=== PATIENT | female | born 1945 | race Caucasian/White ===

== ENCOUNTER → 2016-08-24 | Outpatient (CLI) | payer BC, OTHER ==
[~2016-08-24] MED LIST: AMPH1TAB58 PO; ASPEC325 PO; CALC500C3 PO; CHOL2000 PO; CIPR250T3 PO; FRRG PO; LISI-461 PO; LORA-741 PO; MCRK20 PO; MULT1CHW28 PO; NAPR-998 PO; NAPR1CAP12 PO; ROPI0.5T15 PO; RSTOPS OP; SYN100 PO; TRAM-10 PO; magnesium PO
--- NOTE | 2016-08-24 16:37 | MAMMOGRAPHY REPORT ---
BILATERAL DIGITAL SCREENING MAMMOGRAM WITH CAD: 08/24/2016 CLINICAL HISTORY: Routine screening examination. History of reduction mammoplasty and right breast excisional biopsy. TECHNIQUE: Bilateral CC and MLO views were obtained. Current study was also evaluated with a Comput er Aided Detection (CAD) system. COMPARISON: Comparison is made to exams dated: 08/19/2015 mammogram, 07/24/2014 mammogram, 07/23/2013 mammogram, 06/23/2010 mammogram, 06/19/2009 mammogram - [facility], and 06/27/2008. BREAST COMPOSITION: The tissue of both breasts is heterogeneously dense, which may obscure small ma sses. FINDINGS: There are postsurgical changes in the breasts from previous reduction mammoplasty and rig ht breast excisional biopsy. There are stable asymmetries bilaterally. Diffuse bilateral benign re nal calcifications. No new suspicious mass, architectural distortion or cluster of microcalcificatio ns is seen. IMPRESSION: ACR BI-RADS CATEGORY 2: BENIGN There is no mammographic evidence of malignancy. A 1 year screening mammogram is recommended. The p atient will receive written notification of the results. Approximately 10% of breast cancers are not detected with mammography. A negative mammographic repor t should not delay biopsy if a clinically suggestive mass is present. Eryn Porras M.D. ay/:08/24/2016 15:05:58 Spent Grain Dryer: Ceci RODRÍGUEZ(R)(M), [facility] letter sent: Normal 1/2 BI-RADS Code: ACR BI-RADS Category 2: Benign
== END | disposition home or self-care (01) ==
LOC: C.MAMM 09:59
PROVIDERS: ATTEND Family Medicine
DX: Z12.31 Encounter for screening mammogram for malignant neoplasm of breast (principal)

== ENCOUNTER → 2017-03-15 | Outpatient (CLI) | payer BC, OTHER ==
[~2017-03-15] MED LIST changes: +OPTIRAY 320 IV PRN
--- NOTE | 2017-03-15 12:12 | DIAGNOSTIC IMAGING REPORT ---
ABD WITH IV AND ORAL CONT (CT) CT DOSE: 615.32 mGycm HISTORY: Abdominal pain pain TECHNIQUE: Multiaxial CT images of the abdomen was performed following the use of intravenous and oral contrast. A dose lowering technique was utilized adhering to the principles of ALARA. COMPARISON STUDY: 12/14/2013 FINDINGS: Lung bases are clear. Mild fatty infiltration of liver. Prior cholecystectomy. Kidneys enhance uniformly. Spleen and pancreas are unremarkable. There is a very small hiatal hernia. IMPRESSION: 1. Fatty infiltration of liver. 2. Prior cholecystectomy. 3. Otherwise negative study The above report was generated using voice recognition software. It may contain grammatical, syntax or spelling errors. Electronically signed by: Randy Thompson M.D. 03/15/2017 12:11 PM Dictated Date/Time: 03/15/2017 12:07 PM
== END | disposition home or self-care (01) ==
LOC: C.CTS 11:23
PROVIDERS: ATTEND Family Medicine
DX: R10.9 Unspecified abdominal pain (principal); K76.0 Fatty (change of) liver, not elsewhere classified; Z90.49 Acquired absence of other specified parts of digestive tract

== ENCOUNTER → 2017-03-17 | Outpatient (CLI) | payer BC, OTHER ==
[~2017-03-17] MED LIST changes: -OPTIRAY 320 IV PRN
== END | disposition home or self-care (01) ==
LOC: C.RDSM 14:27
PROVIDERS: ATTEND Family Medicine
DX: M53.3 Sacrococcygeal disorders, not elsewhere classified (principal)

== ENCOUNTER → 2017-08-25 | Outpatient (CLI) | payer BC, OTHER ==
--- NOTE | 2017-08-25 14:40 | MAMMOGRAPHY REPORT ---
BILATERAL DIGITAL SCREENING MAMMOGRAM TOMOSYNTHESIS WITH CAD: 08/25/2017 TECHNIQUE: Breast tomosynthesis in addition to standard 2D mammography was performed. Current study was also evaluated with a Computer Aided Detection (CAD) system. COMPARISON: Comparison is made to exams dated: 08/24/2016 mammogram, 08/19/2015 mammogram, 07/23/2013 ma mmogram, 07/24/2014 mammogram, 01/19/2013 mammogram, and 07/19/2012 mammogram - [facility]. BREAST COMPOSITION: The tissue of both breasts is heterogeneously dense, which may obscure small mas ses. FINDINGS: No suspicious masses, calcifications, or areas of architectural distortion are noted in ei ther breast. There has been no significant interval change compared to prior exams. There are stable post surgical changes from bilateral reduction mammoplasty. Bilateral asymmetries and benign-appear ing calcifications are stable compared to prior exams. Note that the left MLO view is suboptimal due to difficulties with patient positioning due to left shoulder pain; the left pectoralis muscle is no t visualized on the left MLO view. IMPRESSION: ACR BI-RADS CATEGORY 2: BENIGN There is no mammographic evidence of malignancy. A 1 year screening mammogram is recommended. The pa tient will receive written notification of the results. Approximately 10% of breast cancers are not detected with mammography. A negative mammographic report should not delay biopsy if a clinically suggestive mass is present. Roz Fan M.D. /:08/25/2017 12:42:04 Shactor: Shelley BOUCHER)(Jason), [facility] letter sent: Normal 1/2 BI-RADS Code: ACR BI-RADS Category 2: Benign
== END | disposition home or self-care (01) ==
LOC: C.MAMM 10:19
PROVIDERS: ATTEND Family Medicine
DX: Z12.31 Encounter for screening mammogram for malignant neoplasm of breast (principal)

== ENCOUNTER → 2017-09-05 | Outpatient (CLI) | payer BC, OTHER ==
--- NOTE | 2017-09-05 11:25 | DIAGNOSTIC IMAGING REPORT ---
LEFT LEG ULTRASOUND CLINICAL HISTORY: SKIN LESION LEFT LEG COMPARISON STUDY: None. FINDINGS: Real-time sonographic imaging of the right medial lower leg was performed. At the patient's area of interest there is skin thickening and subcutaneous edema. No definite masses or loculated fluid collections identified. IMPRESSION: Skin thickening and subcutaneous edema within the right medial lower leg. No definite masses identified. Electronically signed by: Wilfred Vera M.D. 09/05/2017 11:23 AM Dictated Date/Time: 09/05/2017 11:21 AM
== END | disposition home or self-care (01) ==
LOC: C.ULTR 10:42
PROVIDERS: ATTEND Family Medicine
DX: L98.9 Disorder of the skin and subcutaneous tissue, unspecified (principal); R60.0 Localized edema

== ENCOUNTER → 2017-12-21 | Day surgery (SDC) | payer BC, OTHER ==
[2017-12-05 08:47] VITALS: Ht 170.2 cm; Wt 95.0 kg
[~2017-12-21] VITALS: Ht 170.2 cm; Wt 95.0 kg
[~2017-12-21] MED LIST changes: -AMPH1TAB58 PO; -ASPEC325 PO; -CALC500C3 PO; +CHOL1000 PO; -CHOL2000 PO; -CIPR250T3 PO; +DICL1GEL12 EXT; +DIPH-437 PO; +EFF/375 PO; -FRRG PO; +HYDR-4380 PO; +IOPAMIDOL INJ 61% 15 ML VIAL ONE; +LEVO88TA PO; +LIDOCAINE HCL 1% MPF 5 ML VIAL ONE; -LISI-461 PO; +LISI10TA PO; -MCRK20 PO; +MELA1TAB5 PO; -MULT1CHW28 PO; -NAPR-998 PO; -NAPR1CAP12 PO; +RANI150T85 PO; -RSTOPS OP; +SODIUM CHLORIDE 0.9% INJ 10 ML VIAL ONE; -SYN100 PO; -magnesium PO
--- NOTE | 2017-12-21 14:26 | History & Physical Bridge - SC ---
H&P Re-Evaluation Bridge Note: I have examined the patient, reviewed the History & Physical and in the interval since the performance of the History & Physical I have noted the following changes of clinical significance: No changes noted
--- NOTE | 2017-12-21 14:51 | [facility] Post Operative Brief Note ---
Immediate Operative Summary Operative Date December 21, 2017. Pre-Operative Diagnosis L4-L5 SPONDYLISTHESIS WITH MULTIFACTORIAL STENOSIS AND LEFT L4 RADICULOPATHY Post-Operative Diagnosis L4-L5 SPONDYLISTHESIS WITH MULTIFACTORIAL STENOSIS AND LEFT L4 RADICULOPATHY Procedure(s) Performed LUMBAR EPIDURAL STEROID INJECTION Surgeon DR. Seng PACK Account Financial Manager Surgeon(s) NONE Estimated Blood Loss 0 Findings Consistent with Post-Op Diagnosis Specimens NA Drains None Anesthesia Type Local Complication(s) none Disposition Disposition:
--- NOTE | 2017-12-21 14:53 | Discharge Instructions ---
Discharge Instructions Date of Service December 21, 2017. Visit Reason for Visit: Lumbar Radiculopathy, Spinal Stenosis Discharge Discharge Diagnosis / Problem: left leg pain Discharge Goals Goal(s): Decrease discomfort, Improve function Medications Stopped Medications Name(s): No blood thinners Activity Recommendations Activity Limitations: resume your previous activity Anesthesia . Post Anesthesia Instructions: If you have had General Anesthesia or IV Sedation: * Do not drive today. * Resume driving when surgeon permits. * Do not make important decisions or sign legal documents today. * Call surgeon for: 1. Temperature elevations greater than 101 degrees F. 2. Uncontrollable pain. 3. Excessive bleeding. 4. Persistent nausea and vomiting. 5. Medication intolerance (nausea, vomiting or rash). * For nausea and vomiting use only clear liquids such as: tea, soda, bouillon until nausea subsides, then gradually increase diet as tolerated. * If you have any concerns or questions, call your surgeon's office. If physician is unavailable and it is an emergency, call 911 or go to the nearest emergency room. . Diet Recommendations Recommended Home Diet: resume previous diet Procedures Procedures Performed: LUMBAR EPIDURAL STEROID INJECTION Pending Studies Studies pending at discharge: no Medical Emergencies . Who to Call and When: Medical Emergencies: If at any time you feel your situation is an emergency, please call 911 immediately. . Non-Emergent Contact Non-Emergency issues call your: Specialist . . "Provider Documentation" section prepared by Johny Zuleta. .
[2017-12-21 14:55] VITALS: TEMP 37.5
[2017-12-21 15:21] VITALS: BP 154/84; PULSE 101; O2SAT 95
--- NOTE | 2017-12-21 20:38 | OPERATIVE REPORT ---
DATE OF OPERATION: 12/21/2017 PREOPERATIVE DIAGNOSIS: Grade 1 L4-L5 spondylolisthesis with multifactorial stenosis and the left L4 radiculopathy. POSTOPERATIVE DIAGNOSIS: Grade 1 L4-L5 spondylolisthesis with multifactorial stenosis and the left L4 radiculopathy. PROCEDURE: Left paramedian L4-L5 interlaminar epidural steroid injection under fluoroscopic guidance. INDICATIONS: The patient is a 72-year-old white female who has a known grade 1 L4-L5 spondylolisthesis. She is having problems with the left L4 radiculopathy and she notes that the pain can be excruciating at times reaching a 10/10. She presents today for an epidural injection to provide her with relief as she has not responded to conservative measures. PHYSICAL EXAMINATION: Pleasant female seated comfortably. She has paresthesias in the left L4 dermatomal areas. She has positive seated straight leg raise. No focal weakness. CONSENT: Verbal and written consent was obtained from the patient. Risks and benefits were reviewed. Risks include, but are not limited to epidural abscess, epidural hematoma, allergic reaction, dural puncture. The patient wishes to proceed. PROCEDURE IN DETAIL: Patient was taken back to the special procedures room of [facility]. She was maintained in a prone position. Backside was cleansed with Betadine x3 and a dry sterile dressing was applied. Fluoroscope was used to identify the L4-L5 interlaminar space on the left side, which was very tight. Overlying skin was anesthetized with 4 mL of lidocaine 1% with a 25-gauge 1.5-inch needle. A 22-gauge 4-1/4 inch Tuohy needle was then directed down towards the intralaminar space. It was advanced under lateral fluoroscopic guidance and loss of resistance was noted at a depth of 10 cm. Isovue-300 contrast 1 mL was injected in which demonstrated epidural uptake pattern, which was confirmed in an AP view. She then underwent injection after negative aspiration of 40 mg of Depo-Medrol and 4 mL of preservative free sodium chloride. Injection reproduced a familiar transient radicular sensation down the left leg. DISPOSITION: 1. Patient was taken out into the discharge recovery area where she will be discharged home once discharge criteria have been met. 2. Follow up in the [facility] office in 4 weeks' time. I attest to the content of the Intraoperative Record and any orders documented therein. Any exception s are noted below.
== END | disposition home or self-care (01) ==
LOC: X.SURG 13:32
PROVIDERS: ATTEND Physical Medicine & Rehabilitation
DX: M43.16 Spondylolisthesis, lumbar region (principal); M48.061 Spinal stenosis, lumbar region without neurogenic claudication; M54.16 Radiculopathy, lumbar region